=== PATIENT | male | born 1960 | race Caucasian/White ===

== ENCOUNTER → 2018-06-23 03:38 | Outpatient (CLI) | payer BC, SELFPAY ==
[2018-06-23 11:33] LABS: Cholesterol 164 mg/dL (50-200); HDL Cholesterol 28 mg/dL (40-60); LDL CHOLESTEROL 82 mg/dL (<100); Triglyceride 358 mg/dL (30-150)
[2018-06-24 09:41] LABS: PSA, Screening 0.2 ng/ml (0-3.5)
[2018-06-28 10:43] LABS: Testosterone, Free 7.11 ng/dL (3.87-14.7); Testosterone, Total 254 ng/dL (240-950)
== END ==
PROVIDERS: PCP Emergency Medicine; Visit Provider Emergency Medicine
DX: E78.5 Hyperlipidemia, unspecified (principal); N40.0 Benign prostatic hyperplasia without lower urinary tract symptoms; N62 Hypertrophy of breast; Z12.5 Encounter for screening for malignant neoplasm of prostate
CPT/HCPCS: 36415; 80061; 83721; 84153; 84402; 84403

== ENCOUNTER 2019-05-30 20:14 | Emergency (ER) | payer BC, SELFPAY ==
[2019-05-30 20:29] VITALS: BP 153/77; RESP 20; TEMP 36.7; O2SAT 95
--- NOTE | 2019-05-30 20:44 | DI.RAD_ITS ---
SYMPTOM/DIAGNOSIS: FEVER PA AND LATERAL CHEST: A density is projected over the right lower lobe posteriorly and most likely represents an acute pneumonitis. The possibility of a mass could not be entirely excluded. The lungs are otherwise clear. There is no pleural effusion. The heart is not enlarged. The bony structures are unremarkable. SUMMARY: Findings consistent with a right lower lobe infiltrate. Mass not entirely excluded. Follow up imaging to clearing is recommended in this patient.
[2019-05-30] MEDS: Normal Saline 1,000 ML 1000 ML IV (21:06)
[2019-05-30] MEDS: Ketorolac 15 MG/ML VIAL IVP (21:07)
[2019-05-30 21:12] VITALS: BP 123/66; PULSE 88; RESP 20; TEMP 37.5; O2SAT 94
[2019-05-30 21:14] LABS: Abs Immature Grans 0.03 k/cumm (0.0-0.09); Absolute Basophil Count 0.03 k/cumm (0.0-0.2); Absolute Eosinophil Count 0.08 k/cumm (0.0-0.7); Absolute Lymphocyte Count 1.37 k/cumm (1.2-3.4); Absolute Monocyte Count 1.16 k/cumm (0.11-0.7); Absolute Neutrophil Count 6.34 k/cumm (1.2-6.7); Basophils % 0.3; Eosinophils % 0.9; HCT 42.3 % (40.0-50.0); HGB 14.7 g/dL (13.5-17.5); Immature Grans % 0.3; Lymphocytes % 15.2; Mean Corp. HGB Concentration 34.8 g/dL (32.0-36.0); Mean Corpuscular Hemoglobin 29.6 pg (27.0-33.0); Mean Corpuscular Volume 85.3 fL (80-95); Mean Platelet Volume 9.2 fL (8.0-11.0); Monocytes % 12.9; Neutrophils % 70.4; Platelet Count 162 x1000/uL (130-400); RBC 4.96 m/cumm (4.50-6.00); RBC Distribution Width 13.5 % (11.8-14.1); White Blood Cell Count 9.01 k/cumm (4.4-10.8)
[2019-05-30 21:32] VITALS: RESP 18
[2019-05-30 21:35] LABS: ALT 25 U/L (12-78); AST 11 U/L (15-37); Albumin 3.5 g/dL (3.4-5.0); Alkaline Phosphatase 68 U/L (46-116); Anion Gap 12.6 mmol/L (3-11); BUN 15 mg/dL (7-18); Bilirubin, Total 1.8 mg/dL (0.2-1.0); CO2 24.4 mmol/L (21.0-32.0); CREATININE 1.01 mg/dL (0.70-1.30); Calcium 8.7 mg/dL (8.5-10.1); Chloride 100 mmol/L (98-107); Glucose 124 mg/dL (70-100); Potassium 3.8 mmol/L (3.5-5.1); Sodium 137 mmol/L (136-145); TSH (W/Ref FT4) 1.43 uIU/mL (0.358-3.74); Total Protein 7.4 g/dL (6.4-8.2)
[2019-05-30 21:53] VITALS: BP 120/65; PULSE 88; RESP 18; TEMP 36.4; O2SAT 93
--- NOTE | 2019-05-30 22:20 | W.ED.GENAD ---
Discharge Plan Disposition Patient Disposition: HOME Condition: Good Discharge Details Chief Complaint: GenMedical Clinical Impression: Community acquired pneumonia Primary Care Provider: Patrick Valladares ED Provider: Sharad Bartholomew Home Meds and New Rx's Prescriptions: New doxycycline hyclate 100 mg tablet 100 mg PO BID Qty: 20 RF: 0 No Action triamcinolone acetonide 15 GM cream 15 gm Topical BID Qty: 1 RF: 0 hydroxyzine HCl 25 MG tablet 25 mg PO Q1W-T3Z PRNQty: 30 RF: 0 Discharge Instructions Instructions: Community Acquired Pneumonia (ED) Additional Instructions: Your x-ray shows evidence of pneumonia. Sometimes cancer can present in atypical forms that look like this. I feel this is unlikely but it is very important that you follow-up with your family doctor for reassessment and repeat imaging in 1 to 2 months. Please take the antibiotic as directed. If you notice any worsening of your symptoms, or any new symptoms such as vomiting, diarrhea, fever, chills, shortness of breath, chest pain, numbness, weakness, or fainting , please return immediately to the emergency department for reevaluation. Please follow up with your primary care provider as soon as possible for reassessment and reevaluation. As always, it was a pleasure participating in your medical care today. Referrals: Patrick Valladares, DO [Primary Care Provider] - Medical Decision Making This is a pleasant 58-year-old male who presents today for 3 days of fever, malaise, generalized aches throughout. He denies any other sick contacts, and aside for aches and malaise he denies any complaints of cough, dysuria, rash, vomiting, diarrhea, neck pain, or significant headache. Exam is notably benign, no evidence of meningitis, no abdominal tenderness, questionable crackles in the right lung rivers, but no other abnormalities. He denies any symptoms of cough. With the notable amount of tics that he is seen, and his symptoms of fever, malaise and joint pain, there may certainly be a component of tickborne illness. We will send tick panel. We will perform laboratory work-up for further evaluation including urinalysis and chest x-ray. Patient's vital signs are notably stable here. 10:40 PM Chest x-ray results show evidence of pneumonia. Questionable and less likely mass per virtual radiology. With patient's symptoms of fever, chills, malaise, and with the questionable crackles noted on initial exam, I do feel that this correlates clinically. With the central risk for continued tickborne illness, we will prescribe doxycycline for coverage of both the pneumonia and tickborne illness. With no evidence of hypoxemia, severe tachycardia, or sepsis feel that he can be discharged with outpatient treatment of his pneumonia. We discussed the importance of close follow-up with his PCP as well as repeat imaging for interval improvement or resolution. I have extensively reviewed the treatment plan and discharge instructions with the patient and their family. I have addressed all patient concerns at this time. The patient and family was made aware of what symptoms to monitor for that would warrant a return to the emergency department. Discussed the plan with the patient and family, they demonstrate verbal understanding and agreement with our assessment and plan at this time. EKG 20: 38 Rate 90, intervals normal, sinus rhythm, no significant ST elevations or depressions, minimally widened QRS. Inverted T wave noted in lead III. No other significant abnormalities. FINDINGS: Lungs: Right lower lobe consolidation favored over mass. Pleural space: Unremarkable. No pleural effusion. No pneumothorax. Heart/Mediastinum: Heart is normal in size. Bones/joints: Unremarkable. IMPRESSION: Right lower lobe pneumonia favored over mass. Radiographic followup is recommended following treatment until complete resolution of the radiographic abnormality. Thank you for allowing us to participate in the care of your patient. Dictated and Authenticated by: Patrick Pablo DO [facility] General Date/Time Provider Initiated Documentation: 05/30/19 20:23. [facility] Narrative: This is a 58-year-old male with no significant past medical history who presents today for evaluations of fatigue, and fever for the last 3 days. He denies any other focal complaints. He denies any cough, chest pain, shortness of breath, abdominal pain, nausea, vomiting, diarrhea, dysuria. He does admit to generalized achiness throughout, in conjunction with his generalized malaise. He denies any severe headache, neck pain or neck stiffness. He denies any other sick contacts, runny nose, or congestion. He denies any history of HIV, IV illicit drug use, or foreign travel. He has no other complaints at this time. No other modifying factors. Of note he has noticed an excessive amount of ticks on his dogs recently, but denies any recent tick bites. He denies any recent rash Related Data Home Medications Medication Instructions Recorded Confirmed hydroxyzine HCl 25 mg PO C4R-[id number] PRN #30 tab-cap 01/27/18 05/30/19 triamcinolone acetonide 15 gm TOPICAL BID #1 script 01/27/18 05/30/19 doxycycline hyclate 100 mg PO BID #20 tab 05/30/19 Previous Rx's Medication Instructions Recorded triamcinolone acetonide 15 gm TOPICAL BID #1 script 01/27/18 doxycycline hyclate 100 mg PO BID #20 tab 05/30/19 Allergies Allergy/AdvReac Type Severity Reaction Status Date / Time banana Allergy Unknown Unverified 05/30/19 20:33 honey Allergy Unknown Unverified 05/30/19 20:33 General Stated Complaint: GenMedical CASEY: 3 Review of Systems Review of Systems All systems reviewed & are unremarkable except as noted in HPI and below PFSH Surgical History PROCEDURES Family History Mother Neoplasm Father Essential hypertension Heart disease Hyperlipidemia Neoplasm Stroke Brother No problems noted. Brother No problems noted. Social History Smoking/Tobacco Use Status: Never Alcohol Intake: current Alcohol Intake frequency: holidays/special occasions only Drug use: Never Substance use type: does not use Exam Narrative Exam Narrative: 1.Const: Well-nourished, Well-developed, appearing stated age 2.Eyes: PERRL, no conjunctival injection, and symmetrical lids. 3.ENT: Atraumatic external nose and ears. Moist MM. Neck: Symmetric, trachea midline, No thyromegaly. Patient demonstrates good movement of cervical neck. There is no nuchal rigidity, no nuchal tenderness. Patient is able to flex the neck without any difficulty or significant pain. Negative Kernig's and Brudzinski sign. 4.CVS: +S1/S2, No murmurs or gallops. Peripheral pulses 2+ and equal in all extremities. Brisk capillary refill in all extremities. 5.RESP: Unlabored respiratory effort. Questionable minimal crackle auscultated on the right. No rhonchi, no wheezes 6.GI: Soft, Nontender/Nondistended, No hepatosplenomegaly. No guarding or rebound. 7.MSK: Normocephalic/Atraumatic, Extremities w/o deformity or ttp No cyanosis or clubbing, Normal movement of all extremities 8.Skin: Warm, Dry. No rashes or lesions. 9.Neuro: lodge attendant II-XII grossly intact. Sensation grossly intact, no focal neurologic deficits. 10.Psych: (AAO) x3. Appropriate mood and affect Course Vital Signs Temperature 36.7 C 05/30/19 20:29 Respiratory Rate 20 05/30/19 20:29 Blood Pressure 153/77 H 05/30/19 20:29 Pulse Oximetry 95 05/30/19 20:29 Temperature 36.4 C L 05/30/19 21:53 Temperature Source Skin 05/30/19 21:53 Pulse 88 05/30/19 21:53 Respiratory Rate 18 05/30/19 21:53 Respiratory Effort Non-Labored 05/30/19 21:32 Respiratory Depth Normal 05/30/19 21:32 Respiratory Pattern Normal 05/30/19 21:32 Blood Pressure 120/65 05/30/19 21:53 Blood Pressure Position Supine 05/30/19 20:29 Pulse Oximetry 93 L 05/30/19 21:53 Oxygen Delivery Method Room Air 05/30/19 21:53 Oxygen Flow Rate 0 05/30/19 21:53 Pain Level 5 05/30/19 21:07 Comment 05/30/19 20:29 Lab/Test Results Lab/Test Results: 05/30/19 21:54 Urine - Clean Catch Urine Culture - Pending 05/30/19 21:30 Blood Blood Culture - Pending 05/30/19 20:55 Blood Blood Culture - Pending Laboratory Tests Range/Units 05/30/19 05/30/19 20:55 20:55 WBC (4.4-10.8) k/cumm 9.01 RBC (4.50-6.00) m/cumm 4.96 Hgb (13.5-17.5) g/dL 14.7 Hct (40.0-50.0) % 42.3 MCV (80-95) fL 85.3 MCH (27.0-33.0) pg 29.6 MCHC (32.0-36.0) g/dL 34.8 RDW (11.8-14.1) % 13.5 Plt Count (130-400) x1000/uL 162 MPV (8.0-11.0) fL 9.2 Immature Gran % 0.3 Neutrophils % 70.4 Lymphocytes % 15.2 Monocytes % 12.9 Eosinophils % 0.9 Basophils % 0.3 Absolute Neutrophils (1.2-6.7) k/cumm 6.34 Absolute Lymphocytes (1.2-3.4) k/cumm 1.37 Absolute Monocytes (0.11-0.7) k/cumm 1.16 H Absolute Eosinophils (0.0-0.7) k/cumm 0.08 Absolute Basophils (0.0-0.2) k/cumm 0.03 Sodium (136-145) mmol/L 137 Potassium (3.5-5.1) mmol/L 3.8 Chloride (98-107) mmol/L 100 Carbon Dioxide (21.0-32.0) mmol/L 24.4 Anion Gap (3-11) mmol/L 12.6 H BUN (7-18) mg/dL 15 Creatinine (0.70-1.30) mg/dL 1.01 Estimated GFR/1.73 m2 (mL/min/1.73m2) >= 60.00 Glucose (70-100) mg/dL 124 H Calcium (8.5-10.1) mg/dL 8.7 Total Bilirubin (0.2-1.0) mg/dL 1.8 H AST (15-37) U/L 11 L ALT (12-78) U/L 25 Alkaline Phosphatase (46-116) U/L 68 Total Protein (6.4-8.2) g/dL 7.4 Albumin (3.4-5.0) g/dL 3.5 TSH (0.358-3.74) uIU/mL 1.43
[2019-05-30 22:31] LABS: Bilirubin Small (Negative); Blood Negative (Negative); Clarity Clear (Clear); Glucose Negative (Negative); Ketones 15 mg/dL (Negative); Leukocyte Esterase Negative (Negative); Nitrite Negative (Negative); Specific Gravity 1.025 (1.005-1.025)
[2019-05-30 22:38] LABS: Bacteria Rare HPF (Negative); C & S Indicated? C&S Done As Ordered; Casts Negative LPF (Negative); Crystals Negative HPF (Negative); Epithelial Cells Rare HPF (Negative); Mucus Trace (Negative); Other Cells Negative (Negative); RBC Negative (0-2); WBC 0-2 HPF (0-5)
--- NOTE | 2019-05-30 22:38 | DI.VRAD_ITS ---
EXAM: XR Chest, 2 Views EXAM DATE/TIME: 05/30/2019 8:46 PM CLINICAL HISTORY: 58 years old, male; Patient HX: Fever of unknown origin TECHNIQUE: Imaging protocol: XR of the chest, 2 views. COMPARISON: No relevant prior studies available. FINDINGS: Lungs: Right lower lobe consolidation favored over mass. Pleural space: Unremarkable. No pleural effusion. No pneumothorax. Heart/Mediastinum: Heart is normal in size. Bones/joints: Unremarkable. IMPRESSION: Right lower lobe pneumonia favored over mass. Radiographic followup is recommended following treatment until complete resolution of the radiographic abnormality. Dictated and Authenticated by: Patrick Pablo MD. Ordering:FLACO Orourke MD
[2019-05-30 22:52] VITALS: BP 124/71; PULSE 84; RESP 16; TEMP 36.6; O2SAT 94
[2019-05-30] MEDS: Doxycycline Hyclate 100 MG CAP PO (22:56)
[2019-06-01 12:34] LABS: Lyme Ab w Rflx to Lyme Confirm Negative
[2019-06-01 22:37] LABS: Anaplasma phagocytophilum Negative (Negative); B. miyamotoi PCR Negative (Negative); Babesia divergens/MO-1 Negative (Negative); Babesia duncani Negative (Negative); Babesia microti Negative (Negative); Ehrlichia chaffeensis Negative (Negative); Ehrlichia ewingii/canis Negative (Negative); Ehrlichia muris eauclairensis Negative (Negative)
== END 2019-05-30 22:57 | disposition home or self-care (01) ==
PROVIDERS: Emergency Provider Student in an Organized Health Care Education/Training Program; PCP Emergency Medicine
DX: J18.9 Pneumonia, unspecified organism (principal); R94.31 Abnormal electrocardiogram [ECG] [EKG]
CPT/HCPCS: 36415; 80053; 87040; 87798; 93005; 96361; 96374; 99285; 71046; 81003; 81015; 84443; 85025; 86618; 87086; 93010; J1885

== ENCOUNTER 2019-06-14 01:01 | Outpatient (CLI) | payer BC, SELFPAY ==
--- NOTE | 2019-06-14 13:50 | DI.CT_ITS ---
SYMPTOMS/DIAGNOSIS: RIGHT LOWER LOBE LESION, RIGHT LUNG MASS, R91.8, ABNORMAL FINDING CHEST CT: The examination was carried out according to the usual protocol with intravenous administration of 70 cc of Omnipaque 350. There are two regions of apparent infiltration involving the right lower lobe and a region of abnormality is noted involving the left lower lobe. The dominant left lower lobe abnormality could be associated with a small mass. There is no evidence of a pleural effusion. There is no evidence of hilar or mediastinal adenopathy. The heart is not enlarged. There is no pericardial effusion. Coronary artery calcification is seen. There is no evidence of an aortic aneurysm. SUMMARY: Bilateral lower lobe infiltrates are identified. The findings would be most consistent with a multifocal pneumonitis. Additional follow-up imaging to clearing is recommended.
[2019-06-14] MEDS: Omnipaque 350 MG/ML 100 ML BTL IJ (13:51)
== END 2019-06-14 01:21 ==
PROVIDERS: PCP Emergency Medicine; Visit Provider Emergency Medicine
DX: R91.8 Other nonspecific abnormal finding of lung field (principal); J18.9 Pneumonia, unspecified organism
CPT/HCPCS: 71260; J3490

== ENCOUNTER 2019-06-27 09:35 | Outpatient (CLI) | payer BC, SELFPAY ==
[2019-06-27 13:03] LABS: ALT 32 U/L (12-78); AST 16 U/L (15-37); Albumin 3.6 g/dL (3.4-5.0); Alkaline Phosphatase 71 U/L (46-116); Anion Gap 9.9 mmol/L (3-11); BUN 11 mg/dL (7-18); Bilirubin, Total 0.7 mg/dL (0.2-1.0); CO2 26.1 mmol/L (21.0-32.0); CREATININE 0.97 mg/dL (0.70-1.30); Calcium 8.3 mg/dL (8.5-10.1); Chloride 104 mmol/L (98-107); Glucose 189 mg/dL (70-100); Sodium 140 mmol/L (136-145)
== END 2019-06-27 09:55 ==
PROVIDERS: PCP Emergency Medicine; Visit Provider Emergency Medicine
DX: J18.1 Lobar pneumonia, unspecified organism (principal)
CPT/HCPCS: 36415; 80053

== ENCOUNTER 2019-07-11 11:45 | Outpatient (CLI) | payer BC, SELFPAY ==
[2019-07-11 12:26] LABS: Hemoglobin A1C 5.5 % (4.5-6.2)
== END 2019-07-11 12:05 ==
PROVIDERS: PCP Emergency Medicine; Visit Provider Emergency Medicine
DX: E11.9 Type 2 diabetes mellitus without complications (principal)
CPT/HCPCS: 36415; 83036

== ENCOUNTER 2019-07-19 00:25 | Outpatient (CLI) | payer BC, SELFPAY ==
--- NOTE | 2019-07-19 12:16 | DI.CT_ITS ---
SYMPTOMS/DIAGNOSIS: PNEUMONIA VERSUS MASS, R22.[address]: Comparison is made with May,. A post contrast exam was performed. There has been near-complete clearing of the previously noted posterior lower lobe infiltrates. There is no evidence of a mass. No pleural or pericardial effusions or adenopathy is seen. No pulmonary nodules are seen. The aorta is normal in diameter. Coronary artery calcifications are seen. The liver shows fatty infiltration. The gallbladder is contracted. The upper portions of the spleen, kidneys, adrenals and pancreas are unremarkable. IMPRESSION: Interval clearing of previously noted bibasilar infiltrates with minimal residual scarring.
[2019-07-19] MEDS: Omnipaque 350 MG/ML 100 ML BTL IJ (12:50)
== END 2019-07-19 00:45 ==
PROVIDERS: PCP Emergency Medicine; Visit Provider Emergency Medicine
DX: R22.2 Localized swelling, mass and lump, trunk (principal); J18.9 Pneumonia, unspecified organism; K76.0 Fatty (change of) liver, not elsewhere classified; R91.8 Other nonspecific abnormal finding of lung field
CPT/HCPCS: 71260; J3490

== ENCOUNTER 2019-10-10 12:50 | Outpatient (CLI) | payer BC, SELFPAY ==
--- NOTE | 2019-10-11 10:50 | HPE_ITS ---
Date of service: 10/10/19 Assessment and Plan Assessment and plan (1) Fasciitis: Status: Acute Assessment and plan: Partial left palmar fasciectomy. Details of surgery were discussed with patient as well as risks and pertinent anatomy. All questions were answered. History of Present Illness History of Present Illness Chief Complaint: Left hand contracture Narrative: Herber is a 58 year old male who comes in today for a preop history and physical for a left partial palmar fasciectomy. He has been dealing with nodules in his left dominant hand for many years now, but now they have gotten to the point where they get in the way and it also is pulling his little finger down into his palm. Since it is getting in the way of his daily activities on his dominant hand, Dr. Curran offers surgical intervention with a left partial palmar fasciectomy, and he agrees and is anxious to proceed. Pertinent Surgical Information Patient denies history of hypertension, CVA, KS, angina, asthma, COPD, renal or liver disorders, hepatitis, bleeding disorders, diabetes, immune or thyroid disorders. Review of Systems Constitutional Constitutional: Denies fever(s) ENT Ears, Nose, Mouth, and Throat: Denies dizziness and Denies sore throat Cardiovascular Cardiovascular: Denies chest pain, Denies palpitations and Denies dyspnea Respiratory Respiratory: Denies cough and Denies dyspnea Gastrointestinal Gastrointestinal: Denies abdominal pain, Denies melena, Denies hematochezia, Denies diarrhea, Denies nausea and Denies vomiting Genitourinary Genitourinary: Denies hematuria and Denies dysuria Neurologic Neurologic: Denies dizziness Endocrine Endocrine: Denies palpitations [facility] Medical History (Updated 10/11/19 @ 10:58 by BARTOLOME Haley) Hypertension (Chronic) Surgical History History of colonoscopy (Chronic) PROCEDURES ESOPHAGOSCOPY NEC w/ extraction of impacted food Family History (Updated 07/05/19 @ 11:35 by Gurvinder Carpenter) Mother , 80 Melanoma Father , 83 Essential hypertension Heart disease Hyperlipidemia Stroke Skin cancer of nose Brother No problems noted. Brother No problems noted. Sister No problems noted. Maternal Grandfather , 75 Cancer Paternal Grandfather , 75 No problems noted. Maternal Grandmother , 93 Stroke Paternal Grandmother , 90 No problems noted. Social History (Updated 07/05/19 @ 11:32 by Gurvinder Carpenter) Smoking/Tobacco Use Status: Never Alcohol Intake: current Alcohol Intake frequency: a few times a week Drug use: Never Substance use type: does not use Caregiver/Support person: No Household members: spouse Housing: house Communication Needs: Corrective Lenses Do you need help understanding health information?: Rarely Pets and animals: Yes Pets and animals: cat(s) Sexually active: No Do you think of yourself as: lesbian/richardson/homosexual Current gender identity: male What is your relationship status?: How often do you talk on the phone with friends or family?: three or more times per week How often do you get together with friends or relatives?: once per week How often do you attend worship or sabianism services?: decline to answer Do you belong to any clubs or organized social groups?: no Panel score (0-1 are the most socially isolated patients): 2 What type of physical activity do you participate in: walking Duration: 15-30 minutes/day Frequency: daily Cristina/Restorationism: None Special cristina needs: No Seatbelt use: always Helmet use: No Drive intox or ride w/intox boom truck driver: No Do you feel safe at home: Yes Do you feel safe in your relationship?: Yes Meds Home Medications and Allergies Home Medications Medication Instructions Recorded Confirmed Type Unknown [No Known Home Meds] 06/27/19 10/10/19 History Allergies Allergy/AdvReac Type Severity Reaction Status Date / Time banana Allergy Intermediate throat Verified 10/10/19 13:54 closes honey Allergy Intermediate throat Verified 10/10/19 13:[address] [facility] Head: normocephalic and atraumatic General nose exam: no nasal discharge Throat: uvula midline and no uvular edema Other: soft palate rises symmetrically, no erythema Eyes Conjunctivae: conjunctivae normal Sclera: sclerae normal Pupils: PERRL Resp Effort & Inspection: normal respiratory effort Auscultation: clear to auscultation bilaterally and no wheezes Cardio Rate: regular rate Rhythm: regular rhythm Heart Sounds: S1 normal, S2 normal and no murmurs GI Palpation: soft, no hepatosplenomegaly and nontender Auscultation: normal bowel sounds
== END 2019-10-10 13:10 ==
PROVIDERS: PCP Emergency Medicine; Visit Provider Orthopaedic Surgery
DX: Z01.818 Encounter for other preprocedural examination (principal)
CPT/HCPCS: NC

== ENCOUNTER 2019-10-16 08:18 | Day surgery (SDC) | payer BC, SELFPAY ==
[2019-10-16 08:35] VITALS: BP 136/90; PULSE 64; RESP 18; TEMP 36.8; O2SAT 94
[2019-10-16] MEDS: Lactated Ringers 1,000 ML 80 ML IV (08:57)
[2019-10-16] MEDS: ceFAZolin 2 GM/50 ML BAG IVPB (10:31)
--- NOTE | 2019-10-16 11:10 | SOFT_PTH ---
PATIENT: Herber Torres LOC: [facility] U#:[id number] AGE/SX: 58/M ROOM: RE10/16/[address]: Jd Curran MD : [id number] BED: DIS: 10/16/2019 SPEC #: [id number] RECD: 10/16/19 12:51 STATUS: [place]ISTA REQ #: [id number] JIM: 10/16/19 11:[address]: Jd Curran DEPT: Surgical Specimen RECD BY: Yandy Fernandes ENTERED: 10/16/19 12:53 SP TYPE: SOFT OTHR DR: Patrick Valladares DO Tissues: 1 - SOFT TISSUE MISC (INC. LIPOMA) Procedures: GROSS AND MICRO LEVEL 4 Comments: [id number]
[2019-10-16] MEDS: Bupivacaine 0.5% Pres-Free 30 ML VIAL (11:15)
--- NOTE | 2019-10-16 11:43 | PDOC.DSDIS_ITS ---
Discharge Plan Disposition Patient Disposition: HOME Condition: Good Discharge Details Reason For Visit: Partial palmar fasciectomy L Attending Provider: Jd Curran Primary Care Provider: Patrick Valladares Home Meds and New Rx's Prescriptions: New ibuprofen 800 mg tablet 800 mg PO Q6H PRN (Reason: pain) Qty: 30 RF: 0 hydrocodone-acetaminophen 5-325 mg tablet 1 tab PO Q6H PRN (Reason: pain) Qty: 10 RF: 0 Discharge Instructions Additional Instructions: Elevate L hand above heart level as much as possible over next 48 hours. Wiggle fingers L hand 10 times/hour when awake to prevent swelling. Keep dressings and splint dry and intact until return. (Cover with plastic bag sealed with large rubber band around forearm to shower) Return to 's office in 2 weeks. Take ibuprofen for mild pain. Take hydrocodone for breakthru pain, if needed. Referrals: Jd Curran MD [ [facility] STAFF PHYSICIAN] - (f/u in 2 weeks.) Equipment/Supplies: Splint Activity:: Activity as Tolerated Remove Dressings/Wound Care:: Do Not Remove Shower/Bathe:: Cover Diet:: As Tolerated Discharge Orders Discharge Orders: Discharge Order (Routine); Ordered 10/16/19 Ordered By: Jd Curran DS: Diagnosis Discharge Diagnosis (1) Fasciitis: Status: Acute
[2019-10-16 12:10] VITALS: BP 146/91; PULSE 60; RESP 18; TEMP 36.6; O2SAT 97
--- NOTE | 2019-10-16 15:21 | ROE_ITS ---
DATE OF PROCEDURE: October 16, 2019 PREOPERATIVE DIAGNOSIS: Nodular palmar fasciitis, left. POSTOPERATIVE DIAGNOSIS: Same. PROCEDURE: Partial palmar fasciectomy, left. ANESTHESIA: IV Regional, Alex Dubois CRNA SURGEON: Jd Curran M.D. INDICATIONS: This is a 58-year-old white male who has noted a contracture of the MP joint of his lef t little finger and a thick cord has developed from the proximal flexion crease of the little finger to the distal edge of the volar carpal ligament. The contracture of the MP joint was 30 degrees. He had no contracture of the PIP joint of the little finger. He did not have a contracture of the midd le finger MP joint. I felt that since he had developed a contracture of the MP joint, it was time fo r a partial palmar fasciectomy to release the contracture. I felt that this was the ideal time befor e there was involvement of the PIP joint. The risks and complications of the procedure were explaine d to the patient in detail preoperatively. PROCEDURE: The patient was taken to the Operating Room on 10/16/19. He was placed supine on the oper ating table and an IV regional anesthetic was administered to the left upper extremity. Once good an esthesia was obtained, the left hand, wrist and forearm were prepped and draped free in the usual nikolas rile fashion. The so-called lead hand was then used to hold the fingers extended. I made a zigzag i ncision centered over the longitudinal cord running to the base of the little finger; it started on t he radial side of the proximal flexion crease of the little finger and then was carried in a zigzag f ashion across flexion creases. The incision was carried proximally to the distal edge of the volar c arpal ligament. Sharp dissection was then used to free up the skin and subcutaneous fat from the pal mar fascia. Starting proximally at the distal edge of the volar carpal ligament, the diseased palmar fascia was incised and then dissection proceeded from proximal to distal with Littler scissors and a #10 scalpel blade. All diseased palmar fascia was excised. Distally the digital nerves were identi fied, freed up and retracted while the diseased palmar fascia was excised. I did extend the dissecti on to the palmar fascia attaching to the flexor sheath of the ring finger as well. I then released t he proximal shannan of both the ring and little fingers. At this point the contracture was relieved a nd all diseased palmar fascia had been excised. The wound was irrigated with saline solution. The wo und margins were infiltrated with 0.5% Marcaine solution. The skin edges were then loosely approxima shakir with interrupted #4-0 nylon sutures. The wound was dressed with Xeroform gauze, followed by fluf f gauze between the fingers and in the palm, covered with an ABD pad and wrapped with a Kerlix bandag e. A short-arm volar fiberglass splint was then applied with a 3-inch STEVE bandage. The IV regional anesthesia was reversed without complications. The patient was discharged to recovery in good condit ion. The patient was discharged home from the Day Surgery Unit when fully recovered from his IV regional a nesthesia. He was given instructions to elevate his left hand above heart level as much as possible overnight tonight. He was encouraged to wiggle his fingers ten times an hour while awake to prevent swelling. He is to keep the dressings and splint dry and intact until he returns for a follow-up in two weeks in my office. He will take Tylenol or ibuprofen for mild pain. He was given a prescriptio n for breakthrough pain of Hydrocodone with APAP 5/325, one tablet every six hours, if needed.
== END 2019-10-16 12:25 | disposition home or self-care (01) ==
PROVIDERS: PCP Emergency Medicine; Visit Provider Orthopaedic Surgery
PROC: (CPT 26123; principal; 2019-10-16 09:45)
DX: M72.4 Pseudosarcomatous fibromatosis (principal); I10 Essential (primary) hypertension
CPT/HCPCS: 26123; 26125; 88305; 88304; J0690; J1885; J2250

== ENCOUNTER 2020-05-14 08:04 | Outpatient (CLI) | payer BC, SELFPAY ==
[2020-05-14 13:04] LABS: Calculated LDL 95 mg/dL (<100); Cholesterol 179 mg/dL (<200); HDL Cholesterol 27 mg/dL (40-60); Triglyceride 288 mg/dL (<150)
== END 2020-05-14 08:24 ==
PROVIDERS: PCP Emergency Medicine; Visit Provider Emergency Medicine
DX: Z13.220 Encounter for screening for lipoid disorders (principal)
CPT/HCPCS: 36415; 80061

== ENCOUNTER 2020-10-29 01:18 | Outpatient (CLI) | payer BC, SELFPAY ==
[2020-10-31 21:29] LABS: COVID-19 RT-PCR Result NEGATIVE (Negative)
== END 2020-10-29 01:38 ==
PROVIDERS: PCP Emergency Medicine; Visit Provider Surgery
DX: Z11.59 Encounter for screening for other viral diseases (principal); Z01.818 Encounter for other preprocedural examination
CPT/HCPCS: U0003

== ENCOUNTER 2020-11-01 07:42 | Day surgery (SDC) | payer BC, SELFPAY ==
[2020-11-01 07:55] VITALS: BP 125/78; PULSE 68; RESP 16; TEMP 36.4; O2SAT 96
--- NOTE | 2020-11-01 08:08 | W.PM.DSUDISC ---
Discharge Plan Disposition Patient Disposition: HOME Condition: Good Discharge Details Reason For Visit: Colonoscopy Attending Provider: Loyda Powers Primary Care Provider: Patrick Valladares Discharge Instructions Additional Instructions: Findings: One small polyp was removed. My office will contact you with biopsy results. Follow up: If the biopsy shows an adenomatous polyp, plan for a colonoscopy in 5 years. Please call if you develop: fevers >101.5 Nausea or Vomiting Abdominal pain that is not transient DAY SURGERY UNIT POST COLONOSCOPY INSTRUCTIONS 1. Because there will be medication in your system for the next 24 hours, you may feel a little sleepy. Your coordination will be affected. Therefore: a. Do not drive or operate dangerous equipment for 24 hours. b. Do not drink alcohol beverages for 24 hours (not even beer). c. Plan to go home and rest for the day. 2. Generally there are no restrictions on your activity after a day or so has gone by, but you may feel a bit fatigued for a few days. 3 After you arrive home you may have a light meal and return to a normal diet as you can tolerate it without feeling sick to your stomach. 4. After surgery, you may feel pain or discomfort. This should be only transient, but if it persists please contact your doctor. 5. If there are any questions regarding the findings of your procedure, please feel free to contact your doctor. 6. If you are unable to contact your doctor with a problem, contact the hospital at [phone]. 7. Continue all your regular medications unless directed otherwise. I understand the above instructions and have no questions. Signature of Patient or Responsible Adult Escort Date/Time Name of Responsible Adult Escort Signature of Nurse Date/Time Activity:: Activity as Tolerated Diet:: As Tolerated Discharge Orders Discharge Orders: Discharge Order (Routine); Ordered 11/01/20 Ordered By: Loyda Powers DS: Diagnosis Discharge Diagnosis (1) Colon polyp: Status: Acute
--- NOTE | 2020-11-01 08:09 | W.COLOREPORT ---
Colonoscopy Report Date of procedure: 11/01/20 Pre-op diagnosis general: Screening Post-op diagnosis procedure note: other (Descending colon polyp) Procedure: Colonoscopy with cold forceps polypectomy Surgeon: Loyda Powers Anesthesia proc note operative: MAC Indications: This 59 year old man presents for routine screening colonoscopy. His prior procedure about 10 years ago was normal. No FH colon cancer or symptoms. Procedure Description: The patient was placed in the left [place] position. Propofol was titrated to sedation. Digital rectal examination revealed no abnormalities. The scope was advanced to the cecum without difficulty. The ileocecal valve and appendiceal orifice were clearly identified. The prep was good. The scope was slowly withdrawn over the course of greater than 6 minutes with no abnormalities seen in the ascending, transverse colon. A diminuitice polyp was removed from the descending colon with the cold forceps. The sigmoid colon and rectum were normal including on retroflexed view. The patient tolerated the procedure well and was stable to recovery. If the polyp is adenomatous, a follow up colonoscopy in 5 years is indicated.
[2020-11-01] MEDS: Lactated Ringers 1,000 ML 80 ML IV (08:16)
--- NOTE | 2020-11-01 09:28 | BOWEL_PTH ---
PATIENT: Herber Torres LOC: [facility] U#:[id number] AGE/SX: 59/M ROOM: RE11/01/[address]: Loyda Powers MD : [id number] BED: DIS: 11/01/2020 SPEC #: [id number] RECD: 11/01/20 12:58 STATUS: [place] REQ #: [id number] JIM: 11/01/20 09:[address]: Loyda Powers DEPT: Surgical Specimen RECD BY: Yandy Fernandes ENTERED: 11/01/20 12:58 SP TYPE: Bowel OTHR DR: Patrick Valladares DO Tissues: 1 - BIOPSY BOWEL Procedures: GROSS AND MICRO LEVEL 4 Comments: [id number]
[2020-11-01 10:00] VITALS: BP 122/65; PULSE 72; RESP 16; TEMP 36.6; O2SAT 96
== END 2020-11-01 11:01 | disposition home or self-care (01) ==
PROVIDERS: PCP Emergency Medicine; Visit Provider Surgery
PROC: 0DJD8ZZ Inspection of Lower Intestinal Tract, Via Natural or Artificial Opening Endoscopic (ICD-10-PCS; CPT 45378; principal; 2020-11-01 09:15)
DX: Z12.11 Encounter for screening for malignant neoplasm of colon (principal); D12.4 Benign neoplasm of descending colon
CPT/HCPCS: 45380; 88305; J2001

== ENCOUNTER 2022-07-10 01:05 | Outpatient (CLI) | payer BC, SELFPAY ==
[2022-07-10 13:28] LABS: Hemoglobin A1C 5.9 % (<5.7)
[2022-07-10 13:36] LABS: ALT 37 U/L (16-63); AST 22 U/L (15-37); Albumin 3.8 g/dL (3.4-5.0); Alkaline Phosphatase 64 U/L (46-116); Anion Gap 10.4 mmol/L (3-11); BUN 11 mg/dL (7-18); CO2 25.6 mmol/L (21.0-32.0); CREATININE 0.9 mg/dL (0.70-1.30); Calcium 8.7 mg/dL (8.5-10.1); Calculated LDL 98 mg/dL (<100); Chloride 106 mmol/L (98-107); Cholesterol 183 mg/dL (<200); Glucose 135 mg/dL (74-106); HDL Cholesterol 32 mg/dL (40-60); Sodium 142 mmol/L (136-145); Total Protein 7.5 g/dL (6.4-8.2); Triglyceride 268 mg/dL (<150)
[2022-07-10 22:31] LABS: PSA, Diagnostic 0.1 ng/mL (<=4.5)
[2022-07-13 10:41] LABS: Hepatitis C Ab w Rflx HCV PCR Negative (Negative)
== END 2022-07-10 01:06 | disposition home or self-care (01) ==
LOC: LOS 01:06
PROVIDERS: PCP Nurse Practitioner Family; Visit Provider Family Medicine
DX: E78.5 Hyperlipidemia, unspecified (principal); I10 Essential (primary) hypertension; R73.9 Hyperglycemia, unspecified; Z12.5 Encounter for screening for malignant neoplasm of prostate; Z11.59 Encounter for screening for other viral diseases
CPT/HCPCS: 36415; 80053; 80061; 86803; 83036; 84153

== ENCOUNTER 2024-06-16 02:32 | Outpatient (CLI) | payer MEDICARE, BC, SELFPAY ==
[2024-06-16 13:03] LABS: Calculated LDL 97 mg/dL (<100); Cholesterol 200 mg/dL (<200); HDL Cholesterol 34 mg/dL (40-60); Triglyceride 346 mg/dL (<150)
[2024-06-16 23:32] LABS: PSA, Screening 0.2 ng/mL (<=4.5)
== END 2024-06-16 02:33 | disposition home or self-care (01) ==
PROVIDERS: PCP Nurse Practitioner Family; Visit Provider Nurse Practitioner Family
DX: Z13.6 Encounter for screening for cardiovascular disorders (principal); Z12.5 Encounter for screening for malignant neoplasm of prostate; Z13.1 Encounter for screening for diabetes mellitus
CPT/HCPCS: 36415; 80061; 84153; 83036

== ENCOUNTER 2024-11-02 02:58 | Outpatient (CLI) | payer MEDICARE, BC, SELFPAY ==
[2024-11-02 12:22] LABS: Hemoglobin A1C 5.5 % (<5.7)
[2024-11-02 13:10] LABS: Calculated LDL 133 mg/dL (<100); Cholesterol 220 mg/dL (<200); HDL Cholesterol 37 mg/dL (40-60); Triglyceride 250 mg/dL (<150)
== END 2024-11-02 02:59 | disposition home or self-care (01) ==
PROVIDERS: PCP Nurse Practitioner Family; Visit Provider Nurse Practitioner Family
DX: Z13.220 Encounter for screening for lipoid disorders (principal); Z13.1 Encounter for screening for diabetes mellitus
CPT/HCPCS: 36415; 80061; 83036

== ENCOUNTER 2025-06-08 00:54 | Outpatient (CLI) | payer MEDICARE, BC, SELFPAY ==
[2025-06-08 09:54] LABS: Hemoglobin A1C 5.7 % (<5.7)
[2025-06-08 10:20] LABS: Anion Gap 7.9 mmol/L (3-11); BUN 19 mg/dL (7-18); CO2 27.1 mmol/L (21.0-32.0); Calcium 9.1 mg/dL (8.5-10.1); Calculated LDL 97 mg/dL (<100); Chloride 106 mmol/L (98-107); Cholesterol 185 mg/dL (<200); Estimated GFR 94.19 (mL/min/1.73m2); Glucose 139 mg/dL (74-106); HDL Cholesterol 31 mg/dL (>or=40); Potassium 4.0 mmol/L (3.5-5.1); Sodium 141 mmol/L (136-145); Triglyceride 289 mg/dL (<150)
[2025-06-08 18:54] LABS: PSA, Screening 0.2 ng/mL (<=4.5)
== END 2025-06-08 00:55 | disposition home or self-care (01) ==
PROVIDERS: PCP Nurse Practitioner Family; Visit Provider Nurse Practitioner Family
DX: Z13.1 Encounter for screening for diabetes mellitus (principal); Z12.5 Encounter for screening for malignant neoplasm of prostate; Z13.6 Encounter for screening for cardiovascular disorders
CPT/HCPCS: 36415; 80048; 80061; 84153; 83036

== ENCOUNTER → 2025-07-19 11:20 | Outpatient (BNVA) | payer MEDICARE, BC, SELFPAY | PROVIDERS: PCP Nurse Practitioner Family; Referring Provider Nurse Practitioner Family; Visit Provider Physical Therapy Assistant | DX: Z12.11 Encounter for screening for malignant neoplasm of colon (principal); Z86.0101 Personal history of adenomatous and serrated colon polyps | CPT/HCPCS: 99024 ==

== ENCOUNTER 2025-08-01 07:35 | Day surgery (SDC) | payer MEDICARE, BC, SELFPAY ==
--- NOTE | 2025-07-31 18:13 | W.ANESPRE ---
General Info Date of Service Date Performed: 08/01/25 Height: 5 ft 10 in Weight: 102.058 kg Body Mass Index (BMI): 32.3 Surgical Procedure: Operation Date: 08/01/25 09:35 Proposed Procedure Side Surgeon shanice Field MD Meds Allergies and Home Medications Allergies Allergy/AdvReac Type Severity Reaction Status Date / Time banana Allergy Intermediate throat Verified 08/01/25 07:56 closes honey Allergy Intermediate throat Verified 08/01/25 07:56 closes Home Medication ?Medication ?Instructions ?Recorded bisacodyl 5 mg tablet,delayed 5 mg PO ONCE #4 tabs 07/19/25 release (Dulcolax (bisacodyl)) polyethylene glycol 3350 17 17 g PO ONCE #238 grams 07/19/25 gram/dose oral powder Current Visit Medications: Current Medications Generic Name Dose Route Start Last Admin Trade Name Freq PRN Reason Stop Dose Admin Ringer's Solution 1,000 mls @ 80 mls/hr 08/01/25 06:00 IV 08/01/25 23:59 INFUSION ABIMBOLA IV Miscellaneous Supplies 1 each 08/01/25 06:00 Iv Access IV 08/01/25 23:59 DIRECTED ABIMBOLA Sodium Chloride 0 ml 08/01/25 06:00 Normal Saline Flush 10 Ml Syr IV 08/01/25 23:59 PRN PRN Sodium Chloride 0 ml 08/01/25 06:00 Normal Saline 10 Ml Vial IJ 08/01/25 23:59 DIRECTED PRN Sterile Water 0 ml 08/01/25 06:00 Water,Injection,Sterile 10 Ml Vial IJ 08/01/25 23:59 DIRECTED PRN PFSH Active Problems Active Problems: Problem Status Onset Code Tinnitus of both ears Acute 06/15/18 H93.13 Bilateral hearing loss Acute 06/15/18 H91.93 Hyperlipidemia Acute E78.5 Tubular adenoma Acute ~10/2020 D36.9 White coat syndrome with high blood pressure but without hypertension Acute R03.0 Medical History Medical History Fasciitis Left hand nodular left partial palmar fasciitis Obesity (BMI 30.0-34.9) Hyperlipidemia (06/15/18) Gynecomastia (06/15/18) Surgical History Surgical History Status post Dupuytren's fasciectomy left hand, partial History of colonoscopy PROCEDURES ESOPHAGOSCOPY NEC w/ extraction of impacted food Tobacco Smoking/Tobacco Use Status: Never Passive smoking exposure: No Second hand exposure: Yes Alcohol Alcohol Intake: current Alcohol intake frequency: a few times a week Alcohol type: beer and wine Substance Use Substance use: Never Substance use type: does not use Vital Signs and Lab Results Vital Signs Most Recent Vital Signs in EMR: Temp Pulse Resp BP Pulse Ox 36.8 C 61 16 156/86 H 96 08/01/25 07:53 08/01/25 07:53 08/01/25 07:53 08/01/25 07:53 08/01/25 07:53 Anesthesia Assessment and Plan Anesthesia History Personal History: No History of Anesthesia Complications Family History: No Family History of Anesthesia Complications Exercise Tolerance Exercise Tolerance: Metabolic Equivalents>4 Cardiac & Pulmonary Exam Cardiac Exam: Normal S1/S2 Heart Sounds Pulmonary Exam: Clear Bilateral Breath Sounds Implantable Cardiac Device Does patient have a Pacemaker or an ICD?: No Airway Exam Known Difficult Airway: No Mallampati Class: 3 Mouth Opening: Normal (> 3cm) Thyromental Distance: Greater than 3 cm Neck Range of Motion: Full ROM Neck Circumference: Normal Teeth Condition: Normal Dentition ASA Classification ASA Score: ASA 2 Emergency Case?: No NPO Status NPO Status: NPO Clears >2 hours, Solids >8 hours Anesthesia Plan Resuscitation Status: Full Code Anesthesia Technique: General Anesthesia Airway Planned: Natural Airway Monitors Used: Standard Monitors Preoperative Comments:: 64 yo for colo. Sig PMHx: never smoker, occ EtOH. No home meds. Previous Anes: - colo, prop, natural airway, no issues.
[2025-08-01 07:53] VITALS: BP 156/86; PULSE 61; RESP 16; TEMP 36.8; O2SAT 96
[2025-08-01] MEDS: Lactated Ringers 1,000 ML 80 ML IV (08:05)
[2025-08-01 08:07] VITALS: BMI 32.3
[2025-08-01 09:30] VITALS: BP 109/67; PULSE 65; RESP 17; TEMP 36.8; O2SAT 96
--- NOTE | 2025-08-01 09:34 | W.COLOREPORT ---
Date of service: 08/01/25 Time of Service: 09:34 Colonoscopy Report Date of procedure: 08/01/25 Pre-op diagnosis general: History of colon polyps Post-op diagnosis procedure note: same Procedure: Colonoscopy Surgeon: Tatiana Field Anesthesia Type: General:No Airway Estimated blood loss (mL): 1 Pathology: none sent Complications: None Disposition: PACU Indications: Patient is a 64-year-old male who presents for repeat colonoscopy given personal history of colon polyps. Prep: Miralax/Dulcolax Procedure Start Time: :14 Procedure End Time: : Retraction Time: 8 Findings: Normal colonoscopy. Procedure Description: Informed consent was obtained. The patient was taken to the endoscopy suite and placed in the left lateral decubitus position. After adequate intravenous sedation, digital rectal exam was performed, which was normal. A colonoscope was inserted into the rectum and negotiated to the cecum. The ileocecal valve and appendiceal orifice were identified. The entire colonic mucosa was then carefully circumferentially inspected upon slow withdrawal of the scope. The cecum, ascending, transverse, and descending colon were all normal. Retroflexion in the rectum was unremarkable. The patient tolerated the procedure well with no complications. Postoperatively, the patient was transferred to the recovery room in stable condition. [place] Bowel Prep [place] Bowel Prep Right Colon: 3 Left Colon: 3 Transverse Colon: 3 Total Score: 9
--- NOTE | 2025-08-01 09:43 | W.ANESPOSTOP ---
Postoperative Evaluation Date, Time and Location Date Performed: 08/01/25 Time Performed: 09:44 Patient Location: Day Surgery Unit Vital Signs Most Recent Imported Vital Signs: Most Recent Vital Signs Temp Pulse Resp BP Pulse Ox 36.8 C 65 17 109/67 96 08/01/25 09:30 08/01/25 09:30 08/01/25 09:30 08/01/25 09:30 08/01/25 09:30 Pain Score Most Recent Pain Score: Most Recent Pain Score Pain Level 0 08/01/25 09:30 Assessment Mental Status: Awake (Alert & Oriented to Patient Baseline) Airway and Respiratory Function: Patent airway with normal (patient baseline) respiratory exam Cardiovascular Function: Hemodynamically Stable Hydration Status: Adequately Hydrated Nausea & Vomiting: No Nausea or Vomiting Pain: Pt. Denies Any Pain Peripheral Nerve Block: Patient did not receive a nerve block
[2025-08-01 09:56] VITALS: BP 124/84; PULSE 55; RESP 17; TEMP 36.5; O2SAT 96
== END 2025-08-01 10:00 | disposition home or self-care (01) ==
PROVIDERS: PCP Nurse Practitioner Family; Visit Provider Student in an Organized Health Care Education/Training Program
PROC: 0DJD8ZZ Inspection of Lower Intestinal Tract, Via Natural or Artificial Opening Endoscopic (ICD-10-PCS; CPT 45378; principal; 2025-08-01 09:30)
DX: Z12.11 Encounter for screening for malignant neoplasm of colon (principal); Z86.0100 Personal history of colon polyps, unspecified
CPT/HCPCS: G0105; 00123; J2704